=== PATIENT | female | born 2005 | race African-American/Black ===

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

== ENCOUNTER 2024-01-23 18:11 | Emergency (ER) | payer SELFPAY ==
[~2024-01-23] VITALS: Ht 165.1 cm; Wt 127.0 kg
[~2024-01-23 18:11] MED LIST changes: +ONDANSETRON4 MG PO
[2024-01-23] MEDS ORDERED: ONDANSETRON 4 MG/TAB ODT SL ONE (19:35)
[2024-01-23] MEDS ORDERED: ZOFRAN4 MG/TAB PO (20:09)
[2024-01-23 21:13] VITALS: BP 145/76
== END 2024-01-23 21:13 | disposition home or self-care (01) | DRG 866 ==
LOC: ED 18:11
DX: B34.9 Viral infection, unspecified (principal); J45.909 Unspecified asthma, uncomplicated; Z20.822 Contact with and (suspected) exposure to COVID-19